=== PATIENT | female | born 1925 | race African-American/Black ===

== ENCOUNTER 2017-07-07 14:17 | Emergency (ER) | payer MEDICARE, OTHER ==
[2017-07-07 14:56] LABS: ABSOLUTE LYMPHOCYTES (AUTO) 0.7 10^3/uL (0.5-4.7); ABSOLUTE MONOCYTES (AUTO) 0.9 10^3/uL (0.1-1.4); ABSOLUTE NEUT (AUTO) 10.2 10^3/uL (1.7-8.2); BASOPHILS % (AUTO) 0.3 % (0-2); EOSINOPHILS % (AUTO) 0.2 % (0-6); HEMATOCRIT 51.2 % (36.0-47.0); HEMOGLOBIN 16.5 g/dL (12.0-15.5); HGB HCT DIFFERENCE -1.7; LYMPHOCYTES % (AUTO) 6.2 % (13-45); MEAN CORPUSCULAR HEMOGLOBIN 29.1 pg (27.0-33.4); MEAN CORPUSCULAR HGB CONC 32.2 g/dL (32.0-36.0); MEAN CORPUSCULAR VOLUME 90 fl (80-97); MONOCYTES % (AUTO) 7.9 % (3-13); RED BLOOD COUNT 5.67 10^6/uL (3.72-5.28); RED CELL DISTRIBUTION WIDTH 15.3 % (11.5-14.0); SEGMENTED NEUTROPHILS % (AUTO) 85.4 % (42-78); WHITE BLOOD COUNT 11.9 10^3/uL (4.0-10.5)
[2017-07-07 15:11] LABS: ALANINE AMINOTRANSFERASE 14 U/L (9-52); ALBUMIN 3.9 g/dL (3.5-5.0); ALKALINE PHOSPHATASE 109 U/L (38-126); ANION GAP 13 (5-19); ASPARTATE AMINO TRANSFERASE 20 U/L (14-36); BILIRUBIN,DIRECT 0.5 mg/dL (0.0-0.4); BLOOD UREA NITROGEN 72 mg/dL (7-20); CARBON DIOXIDE 29 mmol/L (22-30); CHLORIDE 108 mmol/L (98-107); CREATININE RESULT 1.18 mg/dL (0.52-1.25); POTASSIUM 4.1 mmol/L (3.6-5.0); SODIUM 150.1 mmol/L (137-145); TOTAL PROTEIN 7.6 g/dL (6.3-8.2)
[2017-07-07 15:21] LABS: GLUCOSE 668 mg/dL (75-110)
[2017-07-07 15:22] LABS: APPEARANCE,URINE SLIGHTLY-CLOUDY; BILIRUBIN,URINE NEGATIVE (NEGATIVE); GLUCOSE, URINE >=500 mg/dL (NEGATIVE); KETONES,URINE TRACE mg/dL (NEGATIVE); LEUKOCYTE ESTERASE,URINE NEGATIVE (NEGATIVE); NITRITE,URINE NEGATIVE (NEGATIVE); PROTEIN,URINE NEGATIVE (NEGATIVE); URINE SPECIFIC GRAVITY 1.026; UROBILINOGEN,URINE NEGATIVE mg/dL (<2.0)
--- NOTE | 2017-07-07 15:24 | RADIOLOGY REPORT (SQ) ---
EXAM DESCRIPTION: CHEST SINGLE VIEW COMPLETED DATE/TIME: 07/07/2017 3:11 pm REASON FOR STUDY: Altered mental status, tachycardia COMPARISON: 07/04/2013. EXAM PARAMETERS: NUMBER OF VIEWS: One view. TECHNIQUE: Single frontal radiographic view of the chest acquired. RADIATION DOSE: NA LIMITATIONS: None. FINDINGS: LUNGS AND PLEURA: Basilar atelectasis/ scarring. No opacities, masses or pneumothorax. No pleural effusion. MEDIASTINUM AND HILAR STRUCTURES: No masses. Contour normal. HEART AND VASCULAR STRUCTURES: Heart normal in size. Normal vasculature. BONES: No acute findings. HARDWARE: Sternotomy wires and coronary bypass markers. OTHER: No other significant finding. IMPRESSION: NO ACUTE RADIOGRAPHIC FINDING IN THE CHEST. TECHNICAL DOCUMENTATION: JOB ID: [id number]
--- NOTE | 2017-07-07 15:39 | ER Document Report ---
ED General - General Chief Complaint: Altered Mental Status Stated Complaint: ALTERED MENTAL STATUS Time Seen by Provider: 07/07/17 14:39 Notes: Patient has been showing a decreased level of consciousness and responsiveness over the past 3 weeks. Family says that it has gotten much worse over the last 3-4 days and that she is not eating or drinking and she has had decreased urine output to only urinating during the nighttime. Family is also concerned she may have had a stroke because they say she has not moved her right side for the past 3 weeks. Patient is not verbal and does not follow commands. She moves her left side and her head to noxious stimulation. Family says she has not had any cough or chest congestion or shortness of breath. No nausea or vomiting or diarrhea. No UTI symptoms. Has not had any fever. Patient has a history of atrial fibrillation and is on no medicines for that condition. She has been diabetic in the past, but not currently on any medications for that condition. Only surgeries are orthopedic surgeries. Patient's primary care provider is in [place]. TRAVEL OUTSIDE OF THE [place] IN LAST 30 DAYS: No - Related Data Allergies/Adverse Reactions: No Known Allergies Allergy (Verified 07/07/17 14:48) Past Medical History - Social History Smoking Status: Never Smoker Chew tobacco use (# tins/day): No Frequency of alcohol use: None Drug Abuse: None Family History: Reviewed & Not Pertinent Patient has suicidal ideation: No Patient has homicidal ideation: No - Past Medical History Cardiac Medical History: Reports: Hx Atrial Fibrillation, Hx Hypercholesterolemia, Hx Hypertension, Hx Heart Murmur Pulmonary Medical History: Reports: Hx COPD Endocrine Medical History: Reports: Hx Diabetes Mellitus Type 1 - Not on any current medications., Hx Diabetes Mellitus Type 2 - Not on any current medications. Musculoskeltal Medical History: Reports Hx Arthritis Psychiatric Medical History: Reports: Hx Dementia, Hx Depression Traumatic Medical History: Reports: Hx Fractures Past Surgical History: Reports: Hx Cardiac Surgery, Hx Coronary Artery Bypass Graft - triple bypass 1994, Hx Hysterectomy, Hx Orthopedic Surgery - ELBOW SURGERY - Immunizations Hx Diphtheria, Pertussis, Tetanus Vaccination: Yes - unknown Review of Systems - Review of Systems Notes: Family provides limited review of systems. REVIEW OF SYSTEMS: CONSTITUTIONAL : Denies fever. EENT: Denies eye, ear, nose or mouth or throat pain or other symptoms. CARDIOVASCULAR: Denies chest pain. RESPIRATORY: Denies cough, chest congestion, or shortness of breath. GASTROINTESTINAL: Denies abdominal pain or nausea, vomiting, or diarrhea. GENITOURINARY: Denies difficulty or painful urinating, urinary frequency, blood in urine. MUSCULOSKELETAL: Denies back or neck pain. Denies joint pain or swelling. SKIN: Denies rash or skin lesions. NEUROLOGICAL: See HPI. ALL OTHER SYSTEMS REVIEWED AND NEGATIVE. -: Yes ROS unobtainable due to patient's medical condition Physical Exam - Vital signs Vitals: Resp 21 H 07/07/17 14:31 Interpretation: Tachycardic. No: Hypoxic - Notes Notes: PHYSICAL EXAMINATION: GENERAL: Well-appearing, in no acute distress. Does not respond to questions or follow commands. HEAD: Atraumatic, normocephalic. ENT: oropharynx clear without exudates. Dry mucous membranes and tongue. NECK: Normal range of motion, supple. LUNGS: Breath sounds clear and equal bilaterally. HEART: Regular rate and rhythm without any murmurs heard. ABDOMEN: Soft, nontender. No guarding or rebound. BACK: No tenderness throughout entire back. EXTREMITIES: Normal range of motion without pain. NEUROLOGICAL: Patient is not able to walk. Does not speak. Appears that she does not use the right arm or right leg. She is not awake, alert, and oriented in any way. Patient's baseline is that she is wheelchair confined at home and can only put weight on her legs sufficient to transfer from bed to wheelchair or back. PSYCH: unable to assess. SKIN: Warm, dry, no rashes. Course - Re-evaluation Re-evalutation: 07/07/17 15:39 Discussed with family members who say that they have medical power of deputy prosecuting attorney and that the patient does not wish to be resuscitated, so she is a DNR. The daughter who is here with the patient along with the granddaughter, both agree that the patient did not want to be resuscitated or intubated on a ventilator. The daughter says that her brother, the patient's son, lives in [place] and he has the yellow DNR form. 07/07/17 19:[address] scan results, I contacted Dr. Berger, neurosurgery at [place], and presented the case. He recommended IV Decadron 4 mg 3 times daily for 1 week, but he would not perform any procedure based upon this patient 's presentation. I then spoke with Dr. Jensen, [facility] hospitalist, and she declined to accept the patient for admission here. I re-called [facility] and presented the case to them and that our hospitalist were concerned about admitting this patient here without having neurosurgery backup and [facility] was kind enough to accept the patient in transfer. However, when I inform the family of this plan, they ask if [facility] would be able to accept the patient as that would be closer and more convenient for the family to travel to see the patient. I think contacted [facility] and presented the case to Dr. Crews, who said that they would accept the patient to be admitted under Dr. Spain. They are asking for a PCU bed which is not available at this time. - Vital Signs Vital signs: Temp Pulse Resp BP Pulse Ox 126 H 17 143/84 H 96 07/07/17 15:42 07/07/17 19:01 07/07/17 19:00 07/07/17 15:42 - Laboratory Result Diagrams: 07/07/17 14:35 07/07/17 14:35 Laboratory results interpreted by me: 07/07/17 07/07/17 07/07/17 14:35 14:35 15:01 WBC 11.9 H RBC 5.67 H Hgb 16.5 H Hct 51.2 H RDW 15.3 H Seg Neutrophils % 85.4 H Lymphocytes % 6.2 L Absolute Neutrophils 10.2 H Sodium 150.1 H Chloride 108 H BUN 72 H Est GFR ( Amer) 52 L Est GFR (Non-Af Amer) 43 L Glucose 668 H* Direct Bilirubin 0.5 H Urine Glucose (UA) >=500 H Urine Ketones TRACE H Urine Ascorbic Acid 40 H 07/07/17 19:52 Electrolyte abnormalities noted. Patient was given a liter of saline. Blood sugar of 668 noted. Patient has received regular insulin 5 units IV. - Diagnostic Test Radiology reviewed: Image reviewed - CT scan of the brain shows a large left subdural hematoma, mostly old, chronic, but with some small amount of new fresh blood apparent. There is about a 12 mm shift in the midline of the brain., Reports reviewed Radiology results interpreted by me: 07/07/17 19:52 Centre x-ray looks like some mild increased intravascular congestion to me. Radiology read the chest x-ray as stable. Discharge - Discharge Clinical Impression: Subdural hematoma, Atrial fibrillation with rapid ventricular response, Hyperglycemia, Dehydration Condition: Serious Disposition: [facility] Admitting Provider: Hospitalist
--- NOTE | 2017-07-07 16:16 | RADIOLOGY REPORT (SQ) ---
EXAM DESCRIPTION: CT HEAD WITHOUT COMPLETED DATE/TIME: 07/07/2017 4:01 pm REASON FOR STUDY: Altered mental status, not using right arm X3 wks COMPARISON: 07/02/2013. TECHNIQUE: Axial images acquired through the brain without intravenous contrast. Images reviewed wi th bone, brain and subdural windows. Images stored on PACS. All CT scanners at this facility use dose modulation, iterative reconstruction, and/or weight based d osing when appropriate to reduce radiation dose to as low as reasonably achievable (ALARA). [facility]: Dose Right [facility]: CareDose [facility]: Dose Right [facility]: Teradose 4D [facility]: Smart Epocrates RADIATION DOSE: Up-to-date CT equipment and radiation dose reduction techniques were employed. CTDIv ol: 64.6 mGy. DLP: 2326 mGy-cm. mGy. LIMITATIONS: None. FINDINGS: VENTRICLES: Mass effect with compression of the lateral ventricles. CEREBRUM: Midline shift, left right, of 12 mm. No acute parenchymal hemorrhage. CEREBELLUM: No masses. No hemorrhage. No alteration of density. No evidence for acute infarction. EXTRAAXIAL SPACES: Large left subdural fluid collection consistent with a subdural hematoma. This me asures 3.1 cm in maximum width. Predominately low attenuation with scattered areas of higher attenua tion consistent with mixture of old and acute bleed. There is also high attenuation subdural fluid o n the right side consistent with a minimal right subdural hematoma, maximum width approximately 2-3 m m. ORBITS AND GLOBE: No intra- or extraconal masses. Normal contour of globe without masses. CALVARIUM: No fracture. PARANASAL SINUSES: No fluid or mucosal thickening. SOFT TISSUES: No mass or hematoma. OTHER: No other significant finding. IMPRESSION: 1. LARGE LEFT-SIDED SUBDURAL HEMATOMA WITH MAXIMUM WIDTH OF 3.1 CM. MIXTURE OF CHRONIC BLOOD WITH AC LOLA BLEED. SIGNIFICANT MASS EFFECT ON THE CEREBRAL HEMISPHERES WITH MIDLINE SHIFT OF 12 MM. 2. SMALL, 2- 3 MM, ACUTE SUBDURAL HEMATOMA ON THE RIGHT SIDE. COMMENT: Pertinent findings on the imaging study reported as a CRITICAL RESULT to CELI JESUS MD at16:10 on 07/07/2017. Category of Critical Result: Subdural hematoma. TECHNICAL DOCUMENTATION: JOB ID: [id number] Quality ID # [id number]: Final reports with documentation of one or more dose reduction techniques (e.g., Au tomated exposure control, adjustment of the mA and/or kV according to patient size, use of iterative reconstruction technique) 2010 [employer]- All Rights Reserved
[2017-07-07 16:27] LABS: PROTHROMBIN TIME 13.4 SEC (11.4-15.4)
--- NOTE | 2017-07-07 17:06 | EKG REPORT ---
SEVERITY:- ABNORMAL ECG - ATRIAL FIBRILLATION CONSIDER ANTEROSEPTAL INFARCT REPOLARIZATION ABNORMALITY, PROB RATE RELATED BORDERLINE PROLONGED QT INTERVAL : Confirmed by: Michel Rivers MD 07-Jul-2017 17:06:08
[2017-07-07] MEDS ORDERED: DILTIAZEM HCL/D5W 125 ML IV PRN ×2 (17:09→17:15)
[2017-07-07] MEDS ORDERED: INSULIN REG, HUMAN 100 UNIT/ML 3 ML VIAL (PYX) IV ONE (19:14)
[2017-07-07] MEDS ORDERED: DIGOXIN INJ 0.5 MG/2 ML AMPULE IV ONE (19:16)
--- NOTE | 2017-07-08 15:57 | ER Document Report ---
Doctor's Note Notes: 07/08/17 15:56 Care of patient signed out to me at [address] Preston mccoy. Patient pending transfer to [facility]. Went to the bedside to evaluate the patient she has an intracranial bleed is [facility] and I am told that the family did not want to make her hospice and that the hospitalist refused to admit the patient here she has been accepted at [facility] and was recently removed inform she has a bed. On my examination her blood pressure is 127/60 heart rate tachycardic to 106 O2 sat 98% on room air daughter is at the bedside states that she is not doing much in the way of responding. She is moving her left hand and went to grab a hold of her left hand she does try to squeeze my hand. At this point the family is asking about the steroids that she received yesterday whether she will be getting another dose of that today. I am going to look into that and see what she was given if she is due for another dose of that and will as well.
[2017-07-08 17:33] VITALS: BP 134/65
--- NOTE | 2017-07-08 18:02 | ER Document Report ---
Doctor's Note Notes: 07/08/17 18:01 [facility] arrived to take the patient to [facility]. Dr. Bowman noted that there is a DNR on the patient and his chart family had agreed to that but the daughter did not have paperwork to show that. When [facility] arrived they stated they needed DNR paperwork the daughter who is the medical power of patent prosecution attorney just left we called her and she came back to the hospital myself and the nurse at the bedside explained in great detail what the DNR [facility] form meant. Explained to her and if she were to stop breathing that signing this would mean she we do not put a breathing tube and to resuscitate her. We also explained vividly that if her heart were to stop she would not get CPR daughter verbalized understanding of this and stated that that was what her mother wanted. Myself Dr. Alfred Mancuso and the nurse cosigned the DNR form so that they can take her to [facility].
== END 2017-07-08 17:35 | disposition short-term general hospital (02) ==
LOC: ER 14:17
DX: S06.5X9A Traumatic subdural hemorrhage with loss of consciousness of unspecified duration, initial encounter (principal); X58.XXXA Exposure to other specified factors, initial encounter; R00.0 Tachycardia, unspecified; I48.91 Unspecified atrial fibrillation; E86.0 Dehydration; E11.65 Type 2 diabetes mellitus with hyperglycemia; J44.9 Chronic obstructive pulmonary disease, unspecified; I10 Essential (primary) hypertension; Z95.1 Presence of aortocoronary bypass graft; Z66 Do not resuscitate; Z99.3 Dependence on wheelchair
CPT/HCPCS: 93005; 99285; 51702; 96375; 96365; 96366; 36415; 87040; 87086; 82962; 85025; 85610; 85730; 87077; 80053; 81001; 87186; 71010; 70450; 93010; J1160; A9270; J3490; J1815